=== PATIENT | male | born 1995 | race Caucasian/White ===

== ENCOUNTER 2018-06-18 21:15 | Emergency (ER) | payer SELFPAY ==
[~2018-06-18] VITALS: Ht 182.9 cm; Wt 83.9 kg
[2018-06-18 21:29] VITALS: Ht 182.9 cm; Wt 83.9 kg
[2018-06-18 23:55] VITALS: BP 117/74
== END 2018-06-18 23:55 | disposition home or self-care (01) ==
LOC: ED 21:15
DX: R50.9 Fever, unspecified (principal); J02.9 Acute pharyngitis, unspecified; R51 Headache
CPT/HCPCS: 87804